=== PATIENT | male | born 1970 | race Two or more races ===

== ENCOUNTER 2020-07-28 09:50 | Outpatient (REF) | payer MEDICAID, SELFPAY ==
--- NOTE | 2020-07-28 09:53 | XR_ITS ---
EXAMINATION: XR knee LT 2V, XR knee standing BI CLINICAL INFORMATION: Reason for Exam M25.562 - Pain in left knee COMPARISON: None available at the time of this dictation. TECHNIQUE: Bilateral frontal standing, left lateral and patella sunrise view. FINDINGS: BONES: No fracture or dislocation is present. JOINTS: Mild Narrowing of joint spaces suggest degenerative osteoarthritis. There is a small knee joint effusion. SOFT TISSUE: Normal IMPRESSION: Mild DJD primarily medial compartments bilaterally. Small knee joint effusion left.
== END 2020-07-28 09:51 | disposition home or self-care (01) ==
LOC: HO.XRAY 09:50
PROVIDERS: PCP Internal Medicine Geriatric Medicine; Referring Provider Internal Medicine Geriatric Medicine; Visit Provider Orthopaedic Surgery
DX: S83.242A Other tear of medial meniscus, current injury, left knee, initial encounter (principal); M22.2X2 Patellofemoral disorders, left knee; M25.562 Pain in left knee; M25.561 Pain in right knee
CPT/HCPCS: 73560; 73565; 99204

== ENCOUNTER 2020-08-16 18:40 | Outpatient (REF) | payer MEDICAID, SELFPAY ==
--- NOTE | 2020-08-16 | MR_ITS ---
EXAMINATION: MR KNEE WITHOUT CONTRAST, LEFT CLINICAL INFORMATION: Left knee swelling. Constant pain with symptoms x2-3 months. COMPARISON: Radiograph dated 07/28/2020. TECHNIQUE: MRI of the knee without contrast was performed using routine sequences on a high-field scanner. FINDINGS: MENISCI: Medial Meniscus: The posterior horn is avulsed at the root insertion, potentially with a very thin band of residual intact fibers. Meniscal body is partially extruded medially. Lateral Meniscus: Intact LIGAMENTS: Cruciate: Intact Collateral: Intact EXTENSOR MECHANISM: Intact ARTICULAR CARTILAGE/BONE: Patellofemoral Compartment: At the medial patellar facet, there is a 1.5 x 0.9 cm focus of high-grade cartilage loss and full-thickness chondral fissuring with surrounding chondral delamination, underlying articular surface irregularity, and subchondral edema. There is mild generalized surrounding chondral thinning at the medial patellar facet with small marginal osteophytes. More mild chondral thinning is present at the medial trochlear facet. There is mild lateral patellar tilt. The trochlea is shallow with a sulcus angle of 151 degrees. Lateral trochlear inclination angle measures 10 degrees, borderline shallow. TT TG distance measures 1.3 cm, normal. Medial Compartment: Mild to moderate chondral thinning is present at the medial tibial plateau with associated subchondral edema. A small transverse focus of subcortical low T1 signal intensity at the medial tibial plateau along its medial margin may correspond to a small site of stress reaction/developing insufficiency fracture related to the meniscal tear. No articular cortical depression or fragmentation. More mild chondral thinning is present at the medial femoral condyle. Lateral Compartment: Normal JOINT FLUID AND BURSAE: Moderate-sized joint effusion. No Cee's cyst. There is moderate semimembranosus-tibial collateral ligament bursitis. MR/MR knee LT wo con IMPRESSION: 1. Posterior root avulsion of the medial meniscus with partial extrusion of the meniscal body. 2. A 1.5 x 0.9 cm focus of high-grade chondral delamination and cartilage loss of the medial patellar facet with mild overall patellofemoral compartment osteoarthritis. 3. Mild medial compartment osteoarthritis. Small focus of subchondral marrow edema in the medial femoral tibial plateau likely corresponds to a stress reaction/developing insufficiency fracture, though no articular cortical breaks or osteochondral fragmentation are identified. 4. Moderate-sized joint effusion. 5. Moderate semimembranosus-tibial collateral ligament bursitis.
== END 2020-08-16 18:41 | disposition home or self-care (01) ==
LOC: HO.MRI 18:40
PROVIDERS: PCP Internal Medicine Geriatric Medicine; Visit Provider Orthopaedic Surgery
DX: S83.242A Other tear of medial meniscus, current injury, left knee, initial encounter (principal)
CPT/HCPCS: 73721

== ENCOUNTER → 2020-08-31 14:29 | Outpatient (BNVA) | payer MEDICAID, SELFPAY | PROVIDERS: Visit Provider Orthopaedic Surgery | DX: S83.232D Complex tear of medial meniscus, current injury, left knee, subsequent encounter (principal); M22.2X2 Patellofemoral disorders, left knee | CPT/HCPCS: 99212 ==

== ENCOUNTER → 2020-10-12 12:22 | Outpatient (BNVA) | payer MEDICAID, SELFPAY | PROVIDERS: PCP Internal Medicine Geriatric Medicine; Visit Provider Physician Assistant | DX: Z76.89 Persons encountering health services in other specified circumstances (principal) ==

== ENCOUNTER 2020-10-14 06:20 | Day surgery (SDC) | payer MEDICAID, SELFPAY ==
[2020-10-06 15:20] VITALS: BMI 39.9
--- NOTE | 2020-10-12 15:14 | HO.ANESPROP2 ---
Documented by User: Ida Holden 10/12/20 15:15 HPI - Anesthesia Eval Consult details Narrative: 50yo M for Knee Arthroscopy PMFSH Past Medical History Medical History Anxiety Depression High blood pressure Lab test negative for COVID-19 virus PTSD (post-traumatic stress disorder) Sleep apnea Surgical History Surgical History H/O colonoscopy Social History Social History Alcohol intake: never Smoking Status: Never smoker Use of substances other than those prescribed or required for medical reasons: No Advance Directives Information Provided: No Recently lost weight without trying: No 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 Allergies Allergy/AdvReac Type Severity Reaction Status Date / Time No Known Allergies Allergy Verified 10/14/20 07:01 [No Known Allergies*] Home Medications Medication Instructions Recorded Confirmed Type cyclobenzaprine 10 mg tablet 10 mg PO BEDTIME 07/28/20 10/14/20 History losartan 50 mg tablet 50 mg PO DAILY 07/28/20 10/14/20 History prazosin 1 mg capsule 1 mg PO BEDTIME 07/28/20 10/14/20 History sertraline 100 mg tablet 100 mg PO DAILY 07/28/20 10/14/20 History sildenafil 50 mg tablet 50 mg PO DAILY PRN 07/28/20 10/14/20 History sumatriptan succinate 50 mg tablet 50 mg PO Q2-4H PRN 07/28/20 10/14/20 History Exam Exam Date and Time: October 12, 2020 1514 Height,Weight and Vital Signs: Height 5 ft 8 in Weight 119.295 kg Assessment and Plan Assessment Anesthesia Assessment: Chart Reviewed Documented by User: Andreea Muhammad 10/14/20 08:46 PMF Past Medical History Medical History Anxiety Depression High blood pressure Lab test negative for COVID-19 virus PTSD (post-traumatic stress disorder) Sleep apnea Surgical History Surgical History H/O colonoscopy Social History Social History Alcohol intake: never Smoking Status: Never smoker Use of substances other than those prescribed or required for medical reasons: No Advance Directives Information Provided: No Recently lost weight without trying: No 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 Allergies Allergy/AdvReac Type Severity Reaction Status Date / Time No Known Allergies Allergy Verified 10/14/20 07:01 [No Known Allergies*] Home Medications Medication Instructions Recorded Confirmed Type cyclobenzaprine 10 mg tablet 10 mg PO BEDTIME 07/28/20 10/14/20 History losartan 50 mg tablet 50 mg PO DAILY 07/28/20 10/14/20 History prazosin 1 mg capsule 1 mg PO BEDTIME 07/28/20 10/14/20 History sertraline 100 mg tablet 100 mg PO DAILY 07/28/20 10/14/20 History sildenafil 50 mg tablet 50 mg PO DAILY PRN 07/28/20 10/14/20 History sumatriptan succinate 50 mg tablet 50 mg PO Q2-4H PRN 07/28/20 10/14/20 History Exam Airway Mallampati Class: II TM Dist: >3cm Neck ROM: Full Assessment and Plan Assessment Anesthesia Assessment: Anesthesia Plan Discussed and Chart Reviewed Final Anesthetic Review NPO: Yes ASA Class: II Final Preanesthetic Review: No Changes in Pt Med Stat, Meds/Allgs Chart Reviewed, Consent Obtained/Reviewed and Anes Risks/Benef Reviewed Patient Risk: Intermediate Procedure Risk: Low Assessment/Block/Sedation in SS: Assess/Block/Sedation-SS Anesthetic Plan Anesthetic Plan: GA Disposition: Standard PACU
--- NOTE | 2020-10-13 14:56 | MHC.SHP ---
Pre-Procedural Eval Section A The patient is an INPATIENT: No Changes since office visit: No Cold of Flu in the past 2 weeks, No New Medical Problems, No Changes in Medication and No Patient answered all questions The History & Physical has been completed within 30 days and I have reviewed it.: Yes Section B Chief Complaint: left knee pain Allergies: Allergies Allergy/AdvReac Type Severity Reaction Status Date / Time No Known Allergies Allergy Verified 07/28/20 10:10 [No Known Allergies*] Plan I have reviewed the history and physical and performed a pertinent physical examination on my patient. No changes have occurred unless specified.
[2020-10-14 07:53] VITALS: BP 141/71; PULSE 90; RESP 18; TEMP 36.1; O2SAT 99
[2020-10-14] MEDS: Lactated Ringers 1,000 ML 100 ML IVCONT (07:55)
--- NOTE | 2020-10-14 09:27 | PM.PRCOR ---
Brief Operative Note Date of procedure: 10/14/20 Pre-op diagnosis: left anterior knee pain Post-op diagnosis: same (with medial meniscus tear left knee) Procedure: Arthroscopic surgery left knee Anesthesia: GLMA Surgeon: Everton Regalado Estimated blood loss (mL): 0 Condition: stable Disposition: PACU
[2020-10-14 09:31] VITALS: BP 129/78; PULSE 86; RESP 16; TEMP 36.7; O2SAT 97
[2020-10-14 09:36] VITALS: BP 131/76; PULSE 88; RESP 17; O2SAT 97
[2020-10-14 09:41] VITALS: BP 135/72; PULSE 85; RESP 17; O2SAT 99
[2020-10-14] MEDS: Acetaminophen 325 MG TABLET 650 MG PO (09:45)
[2020-10-14 09:46] VITALS: BP 120/67; PULSE 87; RESP 18; O2SAT 98
--- NOTE | 2020-10-14 09:56 | OP_ITS ---
SURGEON: Everton Regalado MD PREOPERATIVE DIAGNOSIS: Left anterior knee pain with medial meniscal tear. POSTOPERATIVE DIAGNOSIS: Left anterior knee pain with medial meniscal tear. PROCEDURE PERFORMED: 1. Partial medial meniscectomy, left knee. 2. Debridement of anterior compartment, left knee. ESTIMATED BLOOD LOSS: COMPLICATIONS: ANESTHESIA: ASSISTANTS: SPECIMENS: CLINICAL NOTE: This gentleman has an ongoing problem with pain and discomfort involving his knee. He failed nonoperative management. Therefore, after explaining the risks, benefits, and alternatives and answering all his questions, it was mutually agreed upon to carry out the following procedure. MOTION: Full range of motion. STABILITY: Cruciate and collateral ligaments intact. DESCRIPTION OF PROCEDURE: PREPARATION: GA, standard technique, tourniquet to 300 mmHg for 10 minutes. SURGICAL TIME-OUT: The patient was identified, procedure confirmed, and site confirmed. Medical analogy and history were reviewed. Preoperative antibiotics were given. Standard DVT prophylaxis in place. All other items were discussed and agreed upon. INCISION: Superolateral, inferolateral, inferomedial, and stab incisions. SYNOVIUM: Normal. SYNOVIAL FLUID: Clear. MEDIAL COMPARTMENT: The medial meniscus was inspected. It had a tear at the junction of the root horn. This was debrided and resected. The rest of the meniscus was palpated and found to be stable and intact. The tibial articular surface had grade 2 wear. The femoral sulcus had some minor grade 2 wear as well. INTERCONDYLAR NOTCH: ACL visualized, palpated intact. PCL palpated intact. LATERAL MENISCUS: Tibial and femoral articular surfaces, popliteus tendon, all stable and intact. ANTERIOR COMPARTMENT: Medial and lateral gutters clear. Suprapatellar pouch clear. Patella had grade 3 injury of the medial facet, which was debrided. The femoral sulcus had some grade 2 softening. CLOSURE: 30 mL total of half and half of 0.75% Marcaine with epinephrine and normal saline was injected in the knee. Steri-Strips and sterile dressing then applied. RECOMMENDATIONS: 1. Restore motion and strength. 2. Resume activity as tolerated. 3. Discharge today with prescription for Tylenol No. 3, 20 tablets. 4. Follow up in the office in 10 days' time. Everton Regalado MD KKI/MODL / [id number]
[2020-10-14 10:01] VITALS: BP 129/69; PULSE 84; RESP 17; TEMP 36.3; O2SAT 98
--- NOTE | 2020-10-14 10:24 | HO.POSTANES ---
Post Anesthesia Evaluation Post Anesthesia Evaluation Vital Signs: Vital Signs Temp Pulse Resp BP Pulse Ox 10/14/20 10:01 97.3 F 84 17 129/69 98 10/14/20 09:46 87 18 120/67 98 10/14/20 09:41 85 17 135/72 99 10/14/20 09:36 88 17 131/76 97 10/14/20 09:31 98.0 F 86 16 129/78 97 10/14/20 07:53 97.0 F 90 18 141/71 H 99 Anesthesia: General LMA Mental Status: Awake Pain Control: Satisfactory Nausea/Vomiting: None Hydration: Adequate Anesthesia-Related Issues: No Anes. Related Issues
== END 2020-10-14 10:32 | disposition home or self-care (01) ==
PROVIDERS: PCP Internal Medicine Geriatric Medicine; Visit Provider Orthopaedic Surgery
PROC: (CPT 29870; principal; 2020-10-14 08:40)
DX: S83.242A Other tear of medial meniscus, current injury, left knee, initial encounter (principal); X58.XXXA Exposure to other specified factors, initial encounter; Y93.9 Activity, unspecified; Y92.9 Unspecified place or not applicable; Y99.8 Other external cause status; I10 Essential (primary) hypertension; F43.10 Post-traumatic stress disorder, unspecified; G47.30 Sleep apnea, unspecified; Z79.899 Other long term (current) drug therapy
CPT/HCPCS: 29881; J0171; J1100; J1885; J2250; J2405; J3010

== ENCOUNTER → 2020-10-22 08:50 | Outpatient (BNVA) | payer MEDICAID, SELFPAY | PROVIDERS: Visit Provider Physician Assistant | DX: S83.232D Complex tear of medial meniscus, current injury, left knee, subsequent encounter (principal) | CPT/HCPCS: 99202 ==

== ENCOUNTER 2020-10-27 08:20 | Outpatient (REF) | payer MEDICAID, SELFPAY ==
--- NOTE | 2020-10-27 08:30 | EMG_ITS ---
HISTORY OF PRESENT ILLNESS: This is a 50-year-old man with a 2-year history of pain, pins and needles and tingling in his feet and legs with the right being worse than the left. He has no other medical problems and is not on any medications. PHYSICAL EXAMINATION: On examination, he is alert and oriented with normal intellectual functions. Cranial nerves II through XII are normal. Muscle tone and strength are normal in all 4 extremities. Reflexes symmetrical, 2+. Plantar responses are flexor. IMPRESSION: Nerve conduction EMG study: Normal electrodiagnostic study of both lower extremities with no evidence of generalized peripheral neuropathy. Borderline slow sensory nerve conduction velocities that may suggest very early sensory neuropathy. If clinically indicated, a followup study in 12 months is recommended. Normal EMG of the right L4 through S1 innervated muscles. MD MEGAN Porter/CLARISSA / [id number]
== END 2020-10-27 08:21 | disposition home or self-care (01) ==
LOC: HO.NEURO 08:20
PROVIDERS: PCP Internal Medicine Geriatric Medicine; Visit Provider Internal Medicine Geriatric Medicine
DX: M79.671 Pain in right foot (principal)
CPT/HCPCS: 95886; 95913

== ENCOUNTER → 2020-12-15 13:02 | Outpatient (BNVA) | payer MEDICAID, SELFPAY | PROVIDERS: PCP Internal Medicine Geriatric Medicine; Visit Provider Internal Medicine Gastroenterology | DX: K64.9 Unspecified hemorrhoids (principal) | CPT/HCPCS: 46600; 99202 ==

== ENCOUNTER 2021-03-11 06:46 | Day surgery (SDC) | payer MEDICAID, SELFPAY ==
--- NOTE | 2021-03-09 14:25 | P.CONAN_ITS ---
HPI - Anesthesia Eval Consult details Narrative: 50yo M for EUA, Hemorrhoidectomy PMFSH Active Problems Active Problems: All Active Problems (Updated 12/15/20 @ 14:38 by Bill Contreras MD) Bleeding hemorrhoids (Acute) Morbid obesity (Acute) Tear of medial meniscus of left knee (Acute) Patellofemoral pain syndrome of left knee (Acute) Past Medical History Medical History Anxiety Bleeding hemorrhoids Depression High blood pressure Lab test negative for COVID-19 virus Morbid obesity PTSD (post-traumatic stress disorder) Sleep apnea Family History Family History Father Diabetes Cancer HTN (hypertension) Maternal Grandfather Cancer Surgical History Surgical History H/O colonoscopy H/O knee surgery Social History Social History Household Members: Spouse Alcohol intake: current Alcohol intake frequency: holidays/special occasions only Patient Tobacco Use Status: Never used Tobacco 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 Allergies Allergy/AdvReac Type Severity Reaction Status Date / Time No Known Allergies Allergy Verified 12/15/20 13:42 [No Known Allergies*] Home Medications Medication Instructions Recorded Confirmed Last Taken Type cyclobenzaprine 10 mg tablet 10 mg PO BEDTIME 07/28/20 12/15/20 Unknown History losartan 50 mg tablet 50 mg PO DAILY 07/28/20 12/15/20 Unknown History prazosin 1 mg capsule 1 mg PO BEDTIME 07/28/20 12/15/20 Unknown History sertraline 100 mg tablet 100 mg PO DAILY 07/28/20 12/15/20 Unknown History sildenafil 50 mg tablet 50 mg PO DAILY PRN 07/28/20 12/15/20 Unknown History sumatriptan succinate 50 mg tablet 50 mg PO Q2-4H PRN 07/28/20 12/15/20 Unknown History Exam Exam Date and Time: March 09, 2021 2715 Assessment and Plan Assessment Anesthesia Assessment: Chart Reviewed
[2021-03-11] VITALS (8 sets, daily range): BP systolic 126–171; BP diastolic 81–95; PULSE 74–101; RESP 16–18; TEMP 36.4–36.8; O2SAT 97–99; BMI 36.9
[2021-03-11] MEDS: Lactated Ringers 1,000 ML 100 ML IVCONT (07:34)
--- NOTE | 2021-03-11 07:59 | P.HPSUR_ITS ---
Pre-Procedural Eval Section B Chief Complaint: Bleeding Hemorrhoids Details of Present Illness: has had bleeding hemorrhoids with frequent swelling and pain Relevant Family History (Specify if Yes): No Relevant Social History: None Present Medications: see Short Stay Collaborative assessment Medical History: Significant History (HTN, obesity, HAIM,PTSD, anxiety) History of Previous Operations: No relevant previous surgery Allergies: Allergies Allergy/AdvReac Type Severity Reaction Status Date / Time No Known Allergies Allergy Verified 12/15/20 13:42 [No Known Allergies*] Review of Systems Sugical H&P ROS: Negative: Constitution, Cardiovascular, Respiratory, Neurological, Psychiatric, Hem-Onc, Allergic/Immunologic, Gastrointestinal, Genitourinary, Musculoskeletal, Integumentary, Endocrine and Eyes/Ears/Nose/Throat Exam Surgical H&P Exam: Normal: HEENT, Normal: Heart, Normal: Lungs, Normal: Extremi ties, Normal: Abdomen, Normal: Skin and Normal: Neurological Plan Diagnosis/Plan: Unchanged I have reviewed the history and physical and performed a pertinent physical examination on my patient. No changes have occurred unless specified.
--- NOTE | 2021-03-11 08:06 | HO.ANESPROP2 ---
[facility] Active Problems Active Problems: All Active Problems (Updated 12/15/20 @ 14:38 by Bill Contreras MD) Bleeding hemorrhoids (Acute) Morbid obesity (Acute) Tear of medial meniscus of left knee (Acute) Patellofemoral pain syndrome of left knee (Acute) Past Medical History Medical History Anxiety Bleeding hemorrhoids Depression High blood pressure Lab test negative for COVID-19 virus Morbid obesity PTSD (post-traumatic stress disorder) Sleep apnea Family History Family History Father Diabetes Cancer HTN (hypertension) Maternal Grandfather Cancer Surgical History Surgical History H/O colonoscopy H/O knee surgery Social History Social History Household Members: Spouse Alcohol intake: current Alcohol intake frequency: holidays/special occasions only Patient Tobacco Use Status: Never used Tobacco Use of substances other than those prescribed or required for medical reasons: No Are you DNR?: No Advance Directives: No Advance Directives Information Provided: Yes Recently lost weight without trying: No Nutrition Risks: No Nutritional Risk Poor oral hygiene: No 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 Allergies Allergy/AdvReac Type Severity Reaction Status Date / Time No Known Allergies Allergy Verified 12/15/20 13:42 [No Known Allergies*] Active Medications: Current Medications Generic Name Dose Route Start Last Admin Trade Name Freq PRN Reason Stop Dose Admin Lactated Ringer's 1,000 mls @ 100 mls/hr 03/11/21 06:30 03/11/21 07:34 Lr IVCONT 100 mls/hr .Q10H BETH Administration Home Medications Medication Instructions Recorded Confirmed Last Taken Type cyclobenzaprine 10 mg tablet 10 mg PO BEDTIME 07/28/20 12/15/20 Unknown History losartan 50 mg tablet 50 mg PO DAILY 07/28/20 12/15/20 Unknown History prazosin 1 mg capsule 1 mg PO BEDTIME 07/28/20 12/15/20 Unknown History sertraline 100 mg tablet 100 mg PO DAILY 07/28/20 12/15/20 Unknown History sildenafil 50 mg tablet 50 mg PO DAILY PRN 07/28/20 12/15/20 Unknown History sumatriptan succinate 50 mg tablet 50 mg PO Q2-4H PRN 07/28/20 12/15/20 Unknown History Exam Exam Date and Time: March 11, [id number] Height,Weight and Vital Signs: Height 5 ft 11 in Weight 120.202 kg Last Vital Signs Temp 98.3 F 03/11/21 07:19 Pulse 88 03/11/21 07:19 Resp 16 03/11/21 07:19 BP 126/81 03/11/21 07:19 Pulse Ox 97 03/11/21 07:19 Airway Mallampati Class: III TM Dist: >3cm Neck ROM: Full Heart: RRR Lungs: CTA
--- NOTE | 2021-03-11 09:47 | P.BOP_ITS ---
Brief Operative Note Date of Service: 03/11/21 Pre-op diagnosis: Bleeding hemorrhoids Post-op diagnosis: other (Bulky internal and external hemorrhoids) Procedure: Exam under anesthesia, hemorrhoidectomy x1, rubber banding x2 Surgeon: Bill Contreras MD Anesthesia: GETA Was an Director [employer] used for this Procedure?: No Estimated blood loss (mL): 100 Pathology: other (Hemorrhoids) Condition: stable Disposition: PACU
--- NOTE | 2021-03-11 09:48 | W.PM.OPN ---
Operative Note Operative Note Date of Service: 03/11/21 Narrative: Preop diagnosis: Bleeding hemorrhoids Postop diagnose: Bleeding Internal and external hemorrhoids, bulky Procedure: Exam under anesthesia hemorrhoidectomy x1, rubber band ligation of internal hemorrhoids x2 Surgeon: Bill Contreras MD Shipwright Supervisor:none The patient is a 50-year-old male who has had chronic problems with bleeding hemorrhoids. He had very large hemorrhoids seen in the office. He understood the technique of exam under anesthesia and hemorrhoidectomy. He was aware of the risks, benefits, and alternatives He was brought to the operating room and placed in prone erich-knife position under general anesthesia via endotracheal tube. The retracted with wide tape laterally. The perianal area was prepped and draped in the usual sterile fashion. A surgical time-out was done The patient received Cefotan 2 g IV preoperatively. Examination of the anal orifice revealed very large hemorrhoids on both the left and right side. The largest hemorrhoidal column appeared to be on the right side. There were large hemorrhoidal columns as well the left but this appeared to be acutely swollen and edematous at the time of the examination. I inserted BuieSmith retractor into the anal canal and examined the anal canal circumferentially. Large internal and external columns with prolapse was noted on both the left and right side. Again the hemorrhoidal columns on the left appeared to be edematous. There were no other lesions seen. The hemorrhoidal columns appeared to bleed easily with slight trauma. I applied a Mac grasper at the largest hemorrhoidal column on the right side. We had to apply to Mac graspers to retract this large hemorrhoidal column. I applied a [id number]-[id number] stitch with a chromic 3-0 at its pedicle. I made an incision around this hemorrhoidal column all the way to the perianal skin using blade 15. I excised this hemorrhoidal column above the plane of the sphincters using scissors all the way to the pedicle. I closed this incision with a running chromic 3-0 stitch. As expected, we encountered a lot of bleeding because of the bulky nature of this hemorrhoids. I had to apply multiple [id number] sutures to achieve hemostasis. Also the rest of the other hemorrhoidal columns appeared to bleed easily because of slight trauma. These were large mixed hemorrhoidal columns on the left. They were very bulky as well. In view of edema with likely heavy bleeding anticipated, I decided not to excise these at this point. I did apply rubber bands to the internal component of a hemorrhoidal column on the left and 1 on the right. I had to apply figure-eight sutures of some of the being hemorrhoids as well to achieve hemostasis. We spent a lot of time cervical for hemostasis because of the oozing and had to apply additional of 8 sutures on the incision as well as on some of the other oozing areas of internal hemorrhoids I observed for about 2 minutes. Once hemostasis was ensured a proceeded to apply a Gelfoam into the anal canal for additional hemostasis rib I infiltrated the perianal area with Marcaine 0.5% generously for postop analgesia. The procedure was then completed The patient tolerated procedure well. There were complication noted. Initial and final counts of sponges and instruments were correct. Estimated blood loss about 100 cc The patient is extubated without difficulty in the operating room and transferred to the recovery room with stable vital signs I will see him in the office and I will discuss with him the need for additional hemorrhoidectomy in the future.
[2021-03-11] MEDS: oxyCODONE HCl Immed Release 5 MG TABLET 10 MG PO (09:55)
[2021-03-11] MEDS: Acetaminophen 325 MG TABLET 650 MG PO (09:55)
[2021-03-11] MEDS: HYDROmorphone HCl 0.5 MG/0.5 ML SYRINGE 0.25 MG IVPUSH ×4 (10:02→10:27)
== END 2021-03-11 11:56 | disposition home or self-care (01) ==
PROVIDERS: PCP Internal Medicine Geriatric Medicine; Visit Provider Surgery
PROC: (CPT 46255; principal; 2021-03-11 08:20)
DX: K64.8 Other hemorrhoids (principal); K64.4 Residual hemorrhoidal skin tags; K64.5 Perianal venous thrombosis; R60.9 Edema, unspecified; I10 Essential (primary) hypertension; F43.10 Post-traumatic stress disorder, unspecified; G47.33 Obstructive sleep apnea (adult) (pediatric); Z99.89 Dependence on other enabling machines and devices
CPT/HCPCS: 46255; 88304; J1170; J1885; J2250; J3010

== ENCOUNTER → 2021-03-17 14:53 | Outpatient (BNVA) | payer MEDICAID, SELFPAY | PROVIDERS: PCP Internal Medicine Geriatric Medicine; Visit Provider Surgery | DX: Z48.815 Encounter for surgical aftercare following surgery on the digestive system (principal); Z87.19 Personal history of other diseases of the digestive system | CPT/HCPCS: 99212 ==

== ENCOUNTER → 2021-04-06 11:05 | Outpatient (BNVA) | payer MEDICAID, SELFPAY | PROVIDERS: PCP Internal Medicine Geriatric Medicine; Visit Provider Surgery | DX: Z09 Encounter for follow-up examination after completed treatment for conditions other than malignant neoplasm (principal); Z87.19 Personal history of other diseases of the digestive system | CPT/HCPCS: 99212 ==

== ENCOUNTER → 2021-08-09 09:46 | Outpatient (BNVA) | payer MEDICAID, SELFPAY | PROVIDERS: Visit Provider Orthopaedic Surgery ==

== ENCOUNTER 2021-08-24 10:16 | Outpatient (REF) | payer MEDICAID, SELFPAY ==
--- NOTE | 2021-08-24 10:15 | EMG_ITS ---
This is a 51-year-old man with 3-month history of bilateral hand pain and numbness with nocturnal symptoms. PHYSICAL EXAMINATION: On examination, he is alert and oriented with normal intellectual functions. His cranial nerves II through XII are normal. Muscle tone and strength are normal in all 4 extremities. Deep tendon reflexes are symmetrical. No Tinel or Phalen sign. IMPRESSION: Carpal tunnel syndrome. Nerve conduction EMG study: Moderately severe carpal tunnel syndrome bilaterally, slightly worse on the right. Normal EMG of the right C5-T1 innervated muscles. MD MEGAN Porter/CLARISSA / [id number]
== END 2021-08-24 10:17 | disposition home or self-care (01) ==
LOC: HO.NEURO 10:16
PROVIDERS: Visit Provider Internal Medicine Geriatric Medicine
DX: G56.03 Carpal tunnel syndrome, bilateral upper limbs (principal)
CPT/HCPCS: 95885; 95913

== ENCOUNTER → 2021-09-21 09:33 | Outpatient (BNVA) | payer MEDICAID, SELFPAY | PROVIDERS: Visit Provider Orthopaedic Surgery | DX: G56.03 Carpal tunnel syndrome, bilateral upper limbs (principal) | CPT/HCPCS: 99202 ==

== ENCOUNTER 2021-10-21 07:47 | Outpatient (REF) | payer MEDICAID, SELFPAY ==
--- NOTE | ~2021-10-21 | XR_ITS ---
EXAMINATION: XR AP KNEE STANDING, BILATERAL XR KNEE, LEFT 2 VIEWS CLINICAL INFORMATION: Bilateral knee pain. COMPARISON: AP bilateral knee 07/28/2020. TECHNIQUE: AP bilateral knees standing. Left knee 2 views. FINDINGS: AP BILATERAL KNEE: There is reduction in medial compartment joint space both knees. There is loss of lateral compartment joint space. No loose bodies or bony erosive changes seen. There is no fracture or dislocation. LEFT KNEE: There is mild reduction in the patellofemoral compartment joint space without suprapatellar joint effusion or loose bodies. There is mild superior patellar spurring. XR/XR knee LT 2V IMPRESSION: Mild degenerative changes in medial and lateral compartment of both knees in upright standing view. Minimal left inferior and superior patellar spurring but no abnormal joint effusion. There is no visible acute fracture or dislocation of the left knee.
--- NOTE | ~2021-10-21 | XR_ITS ---
EXAMINATION: XR AP KNEE STANDING, BILATERAL XR KNEE, LEFT 2 VIEWS CLINICAL INFORMATION: Bilateral knee pain. COMPARISON: AP bilateral knee 07/28/2020. TECHNIQUE: AP bilateral knees standing. Left knee 2 views. FINDINGS: AP BILATERAL KNEE: There is reduction in medial compartment joint space both knees. There is loss of lateral compartment joint space. No loose bodies or bony erosive changes seen. There is no fracture or dislocation. LEFT KNEE: There is mild reduction in the patellofemoral compartment joint space without suprapatellar joint effusion or loose bodies. There is mild superior patellar spurring. XR/XR knee standing BI IMPRESSION: Mild degenerative changes in medial and lateral compartment of both knees in upright standing view. Minimal left inferior and superior patellar spurring but no abnormal joint effusion. There is no visible acute fracture or dislocation of the left knee.
== END 2021-10-21 07:48 | disposition home or self-care (01) ==
LOC: HO.HOSX 07:47
PROVIDERS: Visit Provider Physician Assistant
DX: M22.2X2 Patellofemoral disorders, left knee (principal); M25.561 Pain in right knee
CPT/HCPCS: 73560; 73565; 99212

== ENCOUNTER 2021-11-03 12:08 | Day surgery (SDC) | payer MEDICAID, SELFPAY ==
[2021-11-03 12:38] VITALS: BP 155/89; PULSE 96; RESP 18; TEMP 36.7; O2SAT 98; BMI 36.2
[2021-11-03 15:00] VITALS: BP 111/69; PULSE 77; RESP 16; TEMP 37
--- NOTE | 2021-11-03 15:08 | MHC.SHP ---
Pre-Procedural Eval Section A Date of Service: 11/03/21 The patient is an INPATIENT: No Changes since office visit: No Cold of Flu in the past 2 weeks, No New Medical Problems, No Changes in Medication and No Patient answered all questions The History & Physical has been completed within 30 days and I have reviewed it.: Yes Section B Chief Complaint: carpal tunnel syndrome Allergies: Allergies Allergy/AdvReac Type Severity Reaction Status Date / Time No Known Allergies Allergy Verified 09/21/21 10:41 [No Known Allergies*] Plan I have reviewed the history and physical and performed a pertinent physical examination on my patient. No changes have occurred unless specified.
--- NOTE | 2021-11-03 15:09 | W.PM.OPN ---
Operative Note Operative Note Date of Service: 11/03/21 Narrative: Preop diagnosis: 1. right Carpal tunnel syndrome Postop diagnosis: same Procedure: 1. right Carpal tunnel release Surgeon: Malathi Deleon MD Anesthesia: local block using 1% lidocaine with epinephrine Findings: Thickened transverse carpal ligament. EBL: Less than 5 mL Specimens: None Complications: None Disposition: Brought to recovery room in stable condition Plan: Follow-up for 10-14 days for wound check and suture removal Indications: The patient is 51 years old, with right carpal tunnel syndrome that has been unresponsive to nonoperative management. The risks and benefits of operative treatment including but not limited to risk of damage to blood vessels, nerves, tendons, infection, persistent pain, persistent symptoms, or possible need for additional surgery were discussed with the patient and the patient wishes to proceed with surgery. Procedure: Once consent was obtained a local block was performed using a combination of 1% lidocaine with epinephrine. The patient was then brought back to the operating suite and placed on the operative table in supine position. A tourniquet was applied to the proximal aspect of the right upper extremity and the limb was prepped and draped in a standard surgical fashion. Once assured that we had a good block, a 1.5 cm longitudinal incision was made centered over the carpal tunnel. The incision was made through the skin to the subcutaneous tissues using a #15 blade. Dissection was made down to the level of the transverse carpal ligament with care being taken to protect the palmar cutaneous nerve. Once the transverse carpal ligament was clearly visualized, a longitudinal incision was made in the transverse carpal ligament 1st using a #15 blade, then using tenotomy scissors under direct visualization. Care was taken to look for and protect the motor branch of the median nerve when seen in this area. Once satisfied with our carpal tunnel release the wound was copiously irrigated with normal saline and hemostasis was obtained with a brief period of local pressure. The skin edges were reapproximated with some 5.0 nylon suture material and a sterile dressing was applied. The patient appears to have tolerated the procedure well and with no complications. All digits were well vascularized at the conclusion of the case.
== END 2021-11-03 15:15 | disposition home or self-care (01) ==
PROVIDERS: PCP Internal Medicine Geriatric Medicine; Visit Provider Orthopaedic Surgery
PROC: (CPT 64721; principal; 2021-11-03 13:00)
DX: G56.01 Carpal tunnel syndrome, right upper limb (principal); I10 Essential (primary) hypertension; F32.9 Major depressive disorder, single episode, unspecified; F43.10 Post-traumatic stress disorder, unspecified; G47.33 Obstructive sleep apnea (adult) (pediatric); E66.01 Morbid (severe) obesity due to excess calories; Z79.899 Other long term (current) drug therapy
CPT/HCPCS: 64721

== ENCOUNTER → 2021-11-16 09:16 | Outpatient (BNVA) | payer MEDICAID, SELFPAY | PROVIDERS: Visit Provider Orthopaedic Surgery | DX: G56.03 Carpal tunnel syndrome, bilateral upper limbs (principal) | CPT/HCPCS: 99212 ==

== ENCOUNTER → 2022-04-18 08:40 | Outpatient (BNVA) | payer MEDICAID, SELFPAY | PROVIDERS: PCP Internal Medicine Geriatric Medicine; Visit Provider Orthopaedic Surgery | DX: G56.03 Carpal tunnel syndrome, bilateral upper limbs (principal); M65.311 Trigger thumb, right thumb; M65.331 Trigger finger, right middle finger | CPT/HCPCS: 99212 ==

== ENCOUNTER 2022-05-04 11:42 | Day surgery (SDC) | payer MEDICAID, SELFPAY ==
--- NOTE | 2022-05-04 09:57 | W.PM.OPN ---
Operative Note Operative Note Date of Service: 05/04/22 Narrative: Preop diagnosis: 1. left Carpal tunnel syndrome Postop diagnosis: same Procedure: 1. left Carpal tunnel release Surgeon: Malathi Deleon MD Anesthesia: local block using 1% lidocaine with epinephrine Findings: Thickened transverse carpal ligament. EBL: Less than 5 mL Specimens: None Complications: None Disposition: Brought to recovery room in stable condition Plan: Follow-up for 10-14 days for wound check and suture removal Indications: The patient is 51 years old, with left carpal tunnel syndrome that has been unresponsive to nonoperative management. The risks and benefits of operative treatment including but not limited to risk of damage to blood vessels, nerves, tendons, infection, persistent pain, persistent symptoms, or possible need for additional surgery were discussed with the patient and the patient wishes to proceed with surgery. Procedure: Once consent was obtained a local block was performed using a combination of 1% lidocaine with epinephrine. The patient was then brought back to the operating suite and placed on the operative table in supine position. A tourniquet was applied to the proximal aspect of the left upper extremity and the limb was prepped and draped in a standard surgical fashion. Once assured that we had a good block, a 1.5 cm longitudinal incision was made centered over the carpal tunnel. The incision was made through the skin to the subcutaneous tissues using a #15 blade. Dissection was made down to the level of the transverse carpal ligament with care being taken to protect the palmar cutaneous nerve. Once the transverse carpal ligament was clearly visualized, a longitudinal incision was made in the transverse carpal ligament 1st using a #15 blade, then using tenotomy scissors under direct visualization. Care was taken to look for and protect the motor branch of the median nerve when seen in this area. Once satisfied with our carpal tunnel release the wound was copiously irrigated with normal saline and hemostasis was obtained with a brief period of local pressure. The skin edges were reapproximated with some 5.0 nylon suture material and a sterile dressing was applied. The patient appears to have tolerated the procedure well and with no complications. All digits were well vascularized at the conclusion of the case.
[2022-05-04 12:48] VITALS: BMI 35.5
[2022-05-04 12:49] VITALS: BP 151/77; PULSE 98; RESP 17; TEMP 36.9; O2SAT 97
[2022-05-04 15:21] VITALS: BP 149/78; PULSE 90; RESP 18; TEMP 37.3; O2SAT 97
== END 2022-05-04 15:37 | disposition home or self-care (01) ==
PROVIDERS: PCP Internal Medicine Geriatric Medicine; Visit Provider Orthopaedic Surgery
PROC: (CPT 64721; principal; 2022-05-04 13:50)
DX: G56.02 Carpal tunnel syndrome, left upper limb (principal); R20.0 Anesthesia of skin; I10 Essential (primary) hypertension; G47.33 Obstructive sleep apnea (adult) (pediatric); F41.8 Other specified anxiety disorders; F43.10 Post-traumatic stress disorder, unspecified; E66.01 Morbid (severe) obesity due to excess calories; Z68.36 Body mass index [BMI] 36.0-36.9, adult; Z99.89 Dependence on other enabling machines and devices; Z79.899 Other long term (current) drug therapy
CPT/HCPCS: 64721; J0171

== ENCOUNTER 2022-05-24 10:48 | Outpatient (REF) | payer MEDICAID, SELFPAY ==
--- NOTE | ~2022-05-24 | XR_ITS ---
EXAMINATION: BILATERAL HAND CLINICAL INFORMATION: Pain within the joints COMPARISON: None TECHNIQUE: 3 views each hand. FINDINGS: RIGHT HAND: There is no visible acute fracture, dislocation. The PIP, DIP and MCP joint spaces are maintained normal. No loose body seen. There is a small bone fragment adjacent to the ulnar styloid process likely an old fracture fragment. Left hand: There is no visible acute fracture, dislocation or subluxation. The PIP, DIP and MCP joint spaces are maintained normal. There are no bony erosive changes. No loose bodies visualized. The soft tissues are normal. XR/XR hand LT min 3V IMPRESSION: Unremarkable bilateral hand exam.
--- NOTE | ~2022-05-24 | XR_ITS ---
EXAMINATION: BILATERAL HAND CLINICAL INFORMATION: Pain within the joints COMPARISON: None TECHNIQUE: 3 views each hand. FINDINGS: RIGHT HAND: There is no visible acute fracture, dislocation. The PIP, DIP and MCP joint spaces are maintained normal. No loose body seen. There is a small bone fragment adjacent to the ulnar styloid process likely an old fracture fragment. Left hand: There is no visible acute fracture, dislocation or subluxation. The PIP, DIP and MCP joint spaces are maintained normal. There are no bony erosive changes. No loose bodies visualized. The soft tissues are normal. XR/XR hand RT min 3V IMPRESSION: Unremarkable bilateral hand exam.
== END 2022-05-24 10:49 | disposition home or self-care (01) ==
LOC: HO.XRAY 10:48
PROVIDERS: PCP Internal Medicine Geriatric Medicine; Visit Provider Internal Medicine Geriatric Medicine
DX: M79.641 Pain in right hand (principal); M79.642 Pain in left hand; M79.89 Other specified soft tissue disorders; Z82.61 Family history of arthritis
CPT/HCPCS: 73130

== ENCOUNTER 2022-06-13 09:05 | Outpatient (REF) | payer MEDICAID, SELFPAY ==
--- NOTE | ~2022-06-13 | XR_ITS ---
EXAMINATION: XR HAND, RIGHT CLINICAL INFORMATION: Pain right hand COMPARISON: None TECHNIQUE: PA, lateral, and oblique views of the right hand. FINDINGS: The bones and soft tissues are normal. No fracture. Alignment is anatomic. Joint spaces are maintained. No erosions or soft tissue calcifications. XR/XR hand RT min 3V IMPRESSION: Unremarkable right hand.
== END 2022-06-13 09:06 | disposition home or self-care (01) ==
LOC: HO.HOSX 09:05
PROVIDERS: Visit Provider Orthopaedic Surgery
DX: G56.03 Carpal tunnel syndrome, bilateral upper limbs (principal); M65.331 Trigger finger, right middle finger
CPT/HCPCS: 20550; 73130; 99212; J1100

== ENCOUNTER → 2022-11-08 08:50 | Outpatient (BNVA) | payer MEDICAID, SELFPAY | PROVIDERS: PCP Internal Medicine Geriatric Medicine; Visit Provider Surgery | DX: K64.9 Unspecified hemorrhoids (principal) | CPT/HCPCS: 46600; 99212 ==

== ENCOUNTER → 2022-12-01 11:43 | Outpatient (BNVA) | payer MEDICAID, SELFPAY | PROVIDERS: PCP Internal Medicine Geriatric Medicine; Referring Provider Internal Medicine Geriatric Medicine; Visit Provider Internal Medicine Gastroenterology | DX: Z86.010 Personal history of colon polyps (principal); Z80.0 Family history of malignant neoplasm of digestive organs | CPT/HCPCS: 99212 ==

== ENCOUNTER 2023-01-17 10:38 | Day surgery (SDC) | payer MEDICAID, SELFPAY ==
[2023-01-12 11:03] VITALS: BMI 35.6
--- NOTE | 2023-01-16 12:37 | HO.ANESPROP2 ---
Documented by User: Ida Holden NP 01/16/23 12:37 HPI - Anesthesia Eval Consult details Narrative: 52yo M for Colonoscopy PMFSH Active Problems Active Problems: All Active Problems (Updated 01/12/23 @ 10:56 by Meredith Chino RN) Tear of medial meniscus of left knee (Acute) Patellofemoral pain syndrome of left knee (Acute) Bleeding hemorrhoids (Acute) Carpal tunnel syndrome of right wrist (Acute) Carpal tunnel syndrome of left wrist (Acute) Trigger finger, right middle finger (Acute) Trigger thumb, right thumb (Acute) Status post carpal tunnel release (Acute) Bleeding hemorrhoids (Acute) Morbid obesity (Acute) Past Medical History Medical History Anxiety Bleeding hemorrhoids Depression High blood pressure Lab test negative for COVID-19 virus Morbid obesity PTSD (post-traumatic stress disorder) Sleep apnea Family History Family History Father Diabetes Cancer HTN (hypertension) Maternal Grandfather Cancer Colon cancer Paternal Grandfather Colon cancer Surgical History Surgical History H/O colonoscopy H/O knee surgery History of carpal tunnel release History of hemorrhoidectomy Social History Social History Household Members: Spouse Alcohol intake: current Alcohol intake frequency: holidays/special occasions only Patient Tobacco Use Status: Never used Tobacco Use of substances other than those prescribed or required for medical reasons: No Are you DNR?: No Advance Directives: No Advance Directives Information Provided: Yes Current occupational status: employed 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 Meds Allergies Allergy/AdvReac Type Severity Reaction Status Date / Time No Known Allergies Allergy Verified 12/01/22 11:56 [No Known Allergies*] Home Medications Medication Instructions Recorded Confirmed Last Taken Type cyclobenzaprine 10 mg tablet 10 mg PO BEDTIME 07/28/20 01/17/23 Unknown History prazosin 1 mg capsule 1 mg PO BEDTIME 07/28/20 01/17/23 Unknown History sertraline 100 mg tablet 100 mg PO DAILY 07/28/20 01/17/23 Unknown History sildenafil 50 mg tablet (Viagra) 50 mg PO DAILY PRN Erectile 07/28/20 01/17/23 Unknown History Dysfunction sumatriptan succinate 50 mg tablet 50 mg PO Q2-4H PRN Headache 07/28/20 01/17/23 Unknown History duloxetine 30 mg capsule,delayed 30 mg PO QAM 12/01/22 01/17/23 Unknown History release losartan 50 mg-hydrochlorothiazide 1 tab PO DAILY 12/01/22 01/17/23 Unknown History 12.5 mg tablet naproxen 500 mg tablet 500 mg PO BID PRN Pain 12/01/22 01/17/23 01/13/23 History Exam Exam Date and Time: January 16, 2023 1237 Height,Weight and Vital Signs: Height 5 ft 11 in Weight 116 kg Assessment and Plan Assessment Anesthesia Assessment: Chart Reviewed Documented by User: Lissette Brandon MD 01/17/23 11:03 [facility] Past Medical History Medical History Anxiety Bleeding hemorrhoids Depression High blood pressure Lab test negative for COVID-19 virus Morbid obesity PTSD (post-traumatic stress disorder) Sleep apnea Family History Family History Father Diabetes Cancer HTN (hypertension) Maternal Grandfather Cancer Colon cancer Paternal Grandfather Colon cancer Family history of problems with anesthesia: No Surgical History Surgical History H/O colonoscopy H/O knee surgery History of carpal tunnel release History of hemorrhoidectomy History of Problems with Anesthesia: No Social History Social History Household Members: Spouse Alcohol intake: current Alcohol intake frequency: holidays/special occasions only Patient Tobacco Use Status: Never used Tobacco Use of substances other than those prescribed or required for medical reasons: No Are you DNR?: No Advance Directives: No Advance Directives Information Provided: Yes Current occupational status: employed 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 Meds Allergies Allergy/AdvReac Type Severity Reaction Status Date / Time No Known Allergies Allergy Verified 12/01/22 11:56 [No Known Allergies*] Home Medications Medication Instructions Recorded Confirmed Last Taken Type cyclobenzaprine 10 mg tablet 10 mg PO BEDTIME 07/28/20 01/17/23 Unknown History prazosin 1 mg capsule 1 mg PO BEDTIME 07/28/20 01/17/23 Unknown History sertraline 100 mg tablet 100 mg PO DAILY 07/28/20 01/17/23 Unknown History sildenafil 50 mg tablet (Viagra) 50 mg PO DAILY PRN Erectile 07/28/20 01/17/23 Unknown History Dysfunction sumatriptan succinate 50 mg tablet 50 mg PO Q2-4H PRN Headache 07/28/20 01/17/23 Unknown History duloxetine 30 mg capsule,delayed 30 mg PO QAM 12/01/22 01/17/23 Unknown History release losartan 50 mg-hydrochlorothiazide 1 tab PO DAILY 12/01/22 01/17/23 Unknown History 12.5 mg tablet naproxen 500 mg tablet 500 mg PO BID PRN Pain 12/01/22 01/17/23 01/13/23 History Exam Airway Mallampati Class: III TM Dist: >3cm Neck ROM: Full Heart: rr Lungs: cta Assessment and Plan Assessment Anesthesia Assessment: Anesthesia Plan Discussed Final Anesthetic Review Family History of Problems with Anesthesia: No History of Problems with Anesthesia: No NPO: Yes ASA Class: III Final Preanesthetic Review: No Changes in Pt Med Stat, Meds/Allgs Chart Reviewed and Consent Obtained/Reviewed Patient Risk: Intermediate Procedure Risk: Intermediate Anesthetic Plan Anesthetic Plan: MAC: Disposition: Standard PACU
[2023-01-17 10:50] VITALS: BMI 35.6
[2023-01-17 10:57] VITALS: BP 143/74; PULSE 85; RESP 16; TEMP 36.2; O2SAT 98
--- NOTE | 2023-01-17 11:44 | MHC.SHP ---
Pre-Procedural Eval Section A Date of Service: 01/17/23 Section B Chief Complaint: Benign neoplasm, unspecified site Details of Present Illness: grandparents with colon cancer Relevant Family History (Specify if Yes): Yes Relevant Social History: None Present Medications: see Short Stay Collaborative assessment Medical History: Significant History (Anxiety Bleeding hemorrhoids Depression High blood pressure Lab test negative for COVID-19 virus Morbid obesity PTSD (post-traumatic stress disorder) Sleep apnea) History of Previous Operations: Relevant previous surgery/procedure and date(s) (H/O colonoscopy H/O knee surgery History of carpal tunnel release History of hemorrhoidectomy) Allergies: Allergies Allergy/AdvReac Type Severity Reaction Status Date / Time No Known Allergies Allergy Verified 12/01/22 11:56 [No Known Allergies*] Review of Systems Sugical H&P ROS: Negative: Constitution, Cardiovascular, Respiratory, Neurological, Psychiatric, Hem-Onc, Allergic/Immunologic, Gastrointestinal, Genitourinary, Musculoskeletal, Integumentary, Endocrine and Eyes/Ears/Nose/Throat Exam Surgical H&P Exam: Normal: HEENT, Normal: Heart, Normal: Lungs, Normal: Extremities, Normal: Abdomen, Normal: Skin and Normal: Neurological Plan Diagnosis/Plan: Unchanged I have reviewed the history and physical and performed a pertinent physical examination on my patient. No changes have occurred unless specified. Time Spent With Patient Time: Total time managing care of this patient today ____ minutes.
--- NOTE | 2023-01-17 12:37 | P.OP_ITS ---
Operative Note Operative Note Date of Service: 01/17/23 Narrative: Operative Information Procedure Description: Colonoscopy Indication: hx of polyps Anesthesia: MAC COLONOSCOPY Instrument: Olympus variable stiffness pediatric scope 190L Colonoscopy Monitoring: Vital signs and clinical assessment, continuous EKG monitoring, Pulse oximetry, Carbon Dioxide monitoring and blood pressure monitoring were done throughout the procedure. Colon withdrawal time was 10 minutes. Procedure: The patient was placed in the left lateral decubitis position and pre-procedure medications were administered. After a digital rectal examination of the ano-rectum, the video colonoscope was inserted into the rectum and advanced through the colon to the cecum/TI. The colonoscope was slowly withdrawn in a retrograde panoramic fashion and the colon mucosa was carefully examined including a retroflexed view of the rectum. Findings and interventions are described below. Procedure Difficulty: easy Findings: Terminal Ileum-not intubated l Cecum:normal Ascending Colon: 7-9mm sessile polyp removed with cold snare Transverse Colon -normal Descending Colon:normal Sigmoid Colon: normal Rectum: Retroflexion with medium sized, inflammed internal hemorrhoids, grade I, x2 bands applied to the base of the hemorrhoidal columns proximal to dentate line Anorectum - normal Colon preparation: [place] Bowel Preparation Scale Right colon; 2 Transverse colon: 3 Left colon; 3 (0 = Unprepared colon segment with mucosa not seen due to solid stool that cannot be cleared. 1 = Portion of mucosa of the colon segment seen, but other areas of the colon segment not well seen due to staining, residual stool and/or opaque liquid. 2 = Minor amount of residual staining, small fragments of stool and/or opaque liquid, but mucosa of colon segment seen well. 3 = Entire mucosa of colon segment seen well with no residual staining, small fragments of stool or opaque liquid) Impression and Post Procedure Diagnosis: polyp internal hemorrhoids Plan: High fiber diet leaflet Avoid straining at stool, epsom salts and sitz bath, anusol supps or cream Repeat Colonoscopy in 5 years due to polyp and FH or earlier if clinically indicated Above findings were reviewed with the patient and relevant handouts were provided if indicated.
[2023-01-17 12:41] VITALS: BP 140/79; PULSE 90; RESP 16; TEMP 37.6; O2SAT 98
[2023-01-17 12:56] VITALS: BP 141/89; PULSE 83; RESP 15; TEMP 36.6; O2SAT 99
== END 2023-01-17 13:33 | disposition home or self-care (01) ==
PROVIDERS: PCP Internal Medicine Geriatric Medicine; Visit Provider Internal Medicine Gastroenterology
PROC: 0DJD8ZZ Inspection of Lower Intestinal Tract, Via Natural or Artificial Opening Endoscopic (ICD-10-PCS; CPT 45378; principal; 2023-01-17 11:40)
DX: Z12.11 Encounter for screening for malignant neoplasm of colon (principal); Z86.010 Personal history of colon polyps; D12.2 Benign neoplasm of ascending colon; K64.0 First degree hemorrhoids; I10 Essential (primary) hypertension; F43.10 Post-traumatic stress disorder, unspecified; F32.A Depression, unspecified; F41.1 Generalized anxiety disorder; E66.01 Morbid (severe) obesity due to excess calories; Z68.35 Body mass index [BMI] 35.0-35.9, adult; Z99.89 Dependence on other enabling machines and devices; Z79.899 Other long term (current) drug therapy
CPT/HCPCS: 45385; 45398; 88305

== ENCOUNTER → 2023-03-09 09:50 | Outpatient (BNVA) | payer MEDICAID, SELFPAY | PROVIDERS: PCP Internal Medicine Geriatric Medicine; Visit Provider Internal Medicine Gastroenterology ==